=== PATIENT | male | born 1970 | race Caucasian/White ===

== ENCOUNTER 2024-01-07 09:53 | Emergency (ER) | payer OTHER ==
[~2024-01-07] VITALS: Ht 177.8 cm; Wt 80.6 kg
[2024-01-07] MEDS ORDERED: ASPIRIN 81 MG CHEW PO ONE (10:00)
[2024-01-07] MEDS ORDERED: FARXIGA10 MG PO (10:07)
[2024-01-07] MEDS ORDERED: LISINOPRIL2.5 MG PO (10:07)
[2024-01-07] MEDS ORDERED: OZEMPIC1 MG/0.71 SQ (10:07)
[2024-01-07] MEDS ORDERED: ATORVASTATIN CA20 MG PO (10:07)
[2024-01-07] MEDS ORDERED: METFORMIN HCL500 M1 PO (10:08)
[2024-01-07 10:10] LABS: BASOPHILS 0.3 % (0-2); EOSINOPHILS 1.7 % (0-6); HEMATOCRIT 50.8 % (35.0-50.0); HEMOGLOBIN 17.5 g/dL (12.0-18.0); LYMPHOCYTES 15.9 % (24-44); MCHC 34.4 g/dl (30-36); MCV 90.1 fl (81-99); MONOCYTES 7.1 % (0-12); PLATELET COUNT 191 K/uL (140-440); RBC 5.64 M/ul (4.3-5.7); RDW 12.8 (10.5-15.0)
[2024-01-07 10:28] LABS: ALBUMIN 3.6 g/dL (3.4-5.0); ALBUMIN/GLOBULIN RATIO 1.06 (1.1-2.4); BILIRUBIN, TOTAL 0.8 ng/dL (0.2-1.0); BUN/CREATININE RATIO 15.3 (6.0-28.6); CALCIUM 9.2 mg/dL (8.5-10.1); CREATININE, SERUM 0.98 mg/dL (0.70-1.30); MAGNESIUM 1.6 mg/dL (1.8-2.4)
[2024-01-07] MEDS ORDERED: KETOROLAC TROMETHAMINE 30 MG/ML VIAL IV ONE (11:15)
[2024-01-07] MEDS ORDERED: MAGNESIUM OXIDE 400 MG TABLET PO ONE (12:00)
[2024-01-07 12:30] VITALS: BP 123/80
--- NOTE | 2024-01-07 12:52 | EKG ---
[facility] [address] [facility] [address] [place], [place] [address] Signed Sinus tachycardia Inferior infarct , age undetermined Abnormal ECG No previous ECGs available Confirmed by LINDA CAMPOS MD ([id number]) on 01/07/2024 12:52:56 PM Electronically Signed By: LINDA CAMPOS 01/07/24 1252 PATIENT NAME: ANGEL MIDDLETON Electrocardiogram DATE OF : 72 PHYSICIAN: LINDA CAMPOS REPORT #: [id number] REPORT IS CONFIDENTIAL AND NOT TO BE RELEASED WITHOUT AUTHORIZATION
== END 2024-01-07 12:42 | disposition home or self-care (01) ==
LOC: ED 09:53
PROVIDERS: Emergency Medicine
DX: R07.89 Other chest pain (principal); E83.42 Hypomagnesemia; R00.0 Tachycardia, unspecified; E11.9 Type 2 diabetes mellitus without complications; Z79.899 Other long term (current) drug therapy; Z79.84 Long term (current) use of oral hypoglycemic drugs
CPT/HCPCS: 36415; 71045; 80053; 83735; 84443; 84484; 85025; 85379; 93005; 93010; 96374; 99285-25; A9270; J1885